=== PATIENT | female | born 1955 | race Caucasian/White ===

== ENCOUNTER → 2021-02-02 | Outpatient (CLI) | payer MEDICARE ==
[~2021-02-02] MED LIST: HYDROCODON-ACE1 EAC4 PO
== END ==
LOC: KOH-I 12:40
DX: S22.080A Wedge compression fracture of T11-T12 vertebra, initial encounter for closed fracture (principal); M51.24 Other intervertebral disc displacement, thoracic region
CPT/HCPCS: 72146